=== PATIENT | male | born 2000 | race African-American/Black ===

== ENCOUNTER 2020-01-11 23:21 | Emergency (ER) | payer OTHER ==
[~2020-01-11] VITALS: Ht 180.3 cm; Wt 72.5 kg
--- NOTE | 2020-01-12 00:12 | RAD ---
Left fourth finger, 3 views INDICATION: Trauma to the left fourth digit, smashed in door. Pain with deformity. COMPARISON: None. FINDINGS: An acute, distracted fracture of the distal tuft of the left fourth distal phalanx is present with associated deformity and swelling of the surrounding soft tissues. No dislocation of the joints. No embedded radiopaque foreign body. The rest of the included left hand is unremarkable. IMPRESSION: Acute traumatic avulsion fracture of the distal tuft of the left distal phalanx fourth digit with associated soft tissue deformity. Electronically signed by: Jorge L Yeh MD (01/12/2020 12:09 AM) [facility]
[2020-01-12] MEDS ORDERED: IV NORMAL SALINE 50ML 50 ML ONE (00:43)
[2020-01-12] MEDS ORDERED: cefTRIAXone SODIUM 1 GM VIAL ONE (00:43)
[2020-01-12] MEDS ORDERED: MORPHINE SULFATE 4 MG/ML DISP.SYRIN. IV ONE (01:00)
[2020-01-12] MEDS ORDERED: IV NORMAL SALINE 1,000ML 1,000 ML IV ONE (01:00)
[2020-01-12] MEDS ORDERED: ONDANSETRON PF 4 MG/2 ML VIAL. IVP ONE (01:00)
[2020-01-12] MEDS: HYDROcodone/APAP 7.5/325MG 1 TAB TABLET PO ONE ×2 (02:00→02:30)
[2020-01-12] MEDS: DIPH,PERTUSS(ACELL),TET VAC/PF 0.5 ML SYRINGE. VAX IM ONE (03:11)
--- NOTE | 2020-01-12 03:13 | PHYS DOC ---
Past History Past Medical History: No Pertinent History Past Surgical History: No Surgical History Alcohol Use: None General Adult EDM: Chief Complaint: LACERATION/AVULSION HPI: HPI: 20-year-old male presents from shelter with shelter guards due to left ring finger crush injury. The patient had a cell door slam on his left ring finger. He has a large laceration and possible crush injury. The patient's tetanus is not up-to-date. He denies any other injuries. His pain is 8 out of 10. Review of Systems: Review of Systems: Constitutional: Denies fever or chills Eyes: Denies change in visual acuity HENT: Denies nasal congestion or sore throat Respiratory: Denies cough or shortness of breath Cardiovascular: Denies chest pain or edema GI: Denies abdominal pain, nausea, vomiting, bloody stools or diarrhea : Denies dysuria Musculoskeletal: Left ring finger pain Integument: Denies rash Neurologic: Denies headache, focal weakness or sensory changes Endocrine: Denies polyuria or polydipsia Lymphatic: Denies swollen glands Psychiatric: Denies depression or anxiety Heart Score: Risk Factors: Risk Factors: DM, Current or recent (<one month) smoker, HTN, HLP, family history of CAD, obesity. Risk Scores: Score 0 - 3: 2.5% MACE over next 6 weeks - Discharge Home Score 4 - 6: 20.3% MACE over next 6 weeks - Admit for Clinical Observation Score 7 - 10: 72.7% MACE over next 6 weeks - Early Invasive Strategies Current Medications: Current Meds: Current Medications Medications (Trade) Dose Ordered Sig/[facility] Start Time Stop Time Status Last Admin Dose Admin Acetaminophen/ Hydrocodone Bitart (Lortab 7.5/325) 1 tab 1X ONCE 01/12/20 02:30 01/12/20 02:31 DC Ceftriaxone Sodium 1 gm/ Sodium Chloride 50 ml @ 100 mls/hr 1X ONCE 01/12/20 00:45 01/12/20 01:14 DC 01/12/20 00:54 100 MLS/HR Ceftriaxone Sodium (Rocephin) 1 gm STK-MED ONCE 01/12/20 00:43 01/12/20 00:43 DC Morphine Sulfate (Morphine 4mg Syringe) 4 mg 1X ONCE 01/12/20 01:00 01/12/20 00:37 DC Ondansetron HCl (Zofran) 4 mg 1X ONCE 01/12/20 01:00 01/12/20 00:37 DC Sodium Chloride 50 ml @ As Directed STK-MED ONCE 01/12/20 00:43 01/12/20 00:43 DC Allergies: Allergies: Allergies Coded Allergies Type Severity Reaction Last Updated Verified No Known Allergies Allergy Unknown 01/12/20 Yes Physical Exam: PE: Constitutional: Well developed, well nourished, no acute distress, non-toxic appearance. [] HENT: Normocephalic, atraumatic, bilateral external ears normal, oropharynx moist, no oral exudates, nose normal. [] Eyes: PERRLA, EOMI, conjunctiva normal, no discharge. [] Neck: Normal range of motion, no tenderness, supple, no stridor. [] Cardiovascular:Heart rate regular rhythm, no murmur [] Lungs & Thorax: Bilateral breath sounds clear to auscultation [] Abdomen: Bowel sounds normal, soft, no tenderness, no masses, no pulsatile masses. [] Skin: Warm, dry, no erythema, no rash. [] Back: No tenderness, no CVA tenderness. [] Extremities: Left ring finger with three-quarter circumferential laceration in a spiral manner. Disruption of the nailbed. Active bleeding. [] Neurologic: Alert and oriented X 3, normal motor function, normal sensory function, no focal deficits noted. [] Psychologic: Affect normal, judgement normal, mood normal. [] Current Patient Data: Vital Signs: Vital Signs Date Time Temp Pulse Resp B/P (MAP) Pulse Ox O2 Delivery O2 Flow Rate FiO2 01/12/20 02:00 99 01/11/20 23:25 98.4 79 16 137/74 (95) Room Air EKG: EKG: [] Radiology/Procedures: Radiology/Procedures: [] Impressions: Left fourth finger, 3 views INDICATION: Trauma to the left fourth digit, smashed in door. Pain with deformity. COMPARISON: None. FINDINGS: An acute, distracted fracture of the distal tuft of the left fourth distal phalanx is present with associated deformity and swelling of the surrounding soft tissues. No dislocation of the joints. No embedded radiopaque foreign body. The rest of the included left hand is unremarkable. IMPRESSION: Acute traumatic avulsion fracture of the distal tuft of the left distal phalanx fourth digit with associated soft tissue deformity. Electronically signed by: Napoleon Yeh MD (01/12/2020 12:09 AM) [facility] [place] DICTATED AND SIGNED BY: NAPOLEON YEH MD DATE: 01/12/20 0009 CC: GAURI PINEDA DO; PCP,NO ~ Course & Med Decision Making: Course & Med Decision Making Pertinent Labs and Imaging studies reviewed. (See chart for details) The patient has a complex laceration and fracture of the left ring finger. Most of the distal phalanx is intact. I will attempt to suture up the wound the best I can to preserve as much finger as possible. See laceration note for more details. I spoke with the shelter and there is no narcotic pain medication available. They can do a digital block if necessary and Toradol is not strong enough. They requested that I give a second digital block to the patient for tonight because they did not have a physician available for several more hours. Believe that this is reasonable. An additional 4 cc of 2% lidocaine was given. The patient is stable for discharge at this time. [] Dragon Disclaimer: Dragon Disclaimer: This electronic medical record was generated, in whole or in part, using a voice recognition dictation system. Laceration Repair Lac Repair Indication: [] Complex laceration of the left ring finger Procedure: Verbal consent was obtained from the patient and the guards for suture repair of the patient's complex laceration of the left ring finger. A digital block with 2% lidocaine was used for anesthesia. A total of 5 cc was used. Once good anesthesia was achieved, the wound was thoroughly irrigated and explored. A couple small chips of paint or metal were removed. I removed the fingernail. I attempted to repair the fingernail bed as well as the finger skin the best I could with the tissue available. There was reasonable skin closure. The nailbed continued to have some seepage. I used thermal cautery for parts of it and direct pressure for others. Bleeding was controlled. We placed a compression bandage over the wound. Patient was given a gram of Rocephin IV. His tetanus was updated. Total repaired wound length: 5 cm Other Items: Phalanx fracture The patient tolerated the procedure well Complications: Complex laceration with displaced fracture and nailbed disruption. Departure Departure: Impression: Primary Impression: Fracture of phalanx of left ring finger Qualified Codes: S62.635B - Displaced fracture of distal phalanx of left ring finger, initial encounter for open fracture Additional Impression: Laceration of left ring finger Qualified Codes: S61.315A - Laceration without foreign body of left ring fi nger with damage to nail, initial encounter Disposition: HOME/RESIDENCE PRIOR TO ADM Condition: IMPROVED Referrals: PCP,NO (PCP) Patient Instructions: Fingernail Removal, Fingertip Laceration Justification of Admission: Justification of Admission: Justification of Admission Dx: N/A GAURI PINEDA DO Jan 12, 2020 03:13
[2020-01-12 03:45] VITALS: BP 139/83
== END 2020-01-12 03:45 | disposition home or self-care (01) ==
LOC: ER 23:21 → EEVIPCON 23:21 → ER 01-12 03:45
DX: S62.635A Displaced fracture of distal phalanx of left ring finger, initial encounter for closed fracture (principal); S61.315A Laceration without foreign body of left ring finger with damage to nail, initial encounter; X58.XXXA Exposure to other specified factors, initial encounter; Y93.89 Activity, other specified; Y92.89 Other specified places as the place of occurrence of the external cause; Y99.8 Other external cause status
CPT/HCPCS: 11760; 73140; 90471; 90715; 96365; 99285; J0696